=== PATIENT | male | born 1950 | race Caucasian/White ===

== ENCOUNTER 2017-12-20 11:20 | Outpatient (CLI) ==
--- NOTE | 2017-12-20 11:59 | DI ---
Exam: Three x-rays of the lumbar spine. Comparison: None available. Reason for exam: Chronic back pain. FINDINGS: Age indeterminate compression deformities are seen in the L3 and T10 vertebral bodies. Th ere is a normal appearing lumbar lordotic curve. Multilevel degenerative disease is seen with interv ertebral body disc space height loss and osteophyte formation with facet hypertrophy. Atherosclerotic disease is seen within the aorta and distal arterial vasculature. No obvious listhesis Impression: 1. Age indeterminate compression deformities are seen in the T10 and L3 vertebral bodies. No obvious listhesis. If clinical concern exists for radiculopathy or myelopathy, MRI may be performed for fur ther characterization. 2. Moderate degenerative disease in the lumbosacral spine.
--- NOTE | 2017-12-20 12:00 | DI ---
EXAM: Two views of the right hip. History: Right hip pain. Findings: No acute fracture or dislocation. Mild narrowing of the right hip joint with small osteop hytes. Atherosclerotic vascular calcifications. Mild osteopenia. Nonspecific pelvic calcifications are probably phleboliths. Impression: 1. No acute osseous abnormality. 2. Mild arthritis of the right hip joint. 3. Atherosclerotic vascular disease. 4. Mild osteopenia
== END 2017-12-20 11:21 | disposition home or self-care (01) ==
LOC: RAD 11:20
PROVIDERS: ATTEND Family Medicine
DX: M54.9 Dorsalgia, unspecified (principal); G89.29 Other chronic pain; M25.551 Pain in right hip; M79.604 Pain in right leg

== ENCOUNTER → 2018-01-09 | Outpatient (RCR) | payer OTHER ==
--- NOTE | 2017-12-27 11:07 | RS.OPPTEV2 ---
Date of Note: 12/26/17 Visit #: 1 Date of Evaluation: 12/26/17 Payer Source: MEDICARE Surgery Performed?: No Treatment Diagnosis: back pain History of Condition/Mechanism of Injury:: Reports pain began approx 6 months ago. Prior Level of Function.....Patient was independent with: ADL's, Self Care, Work /Vocation, Caregiving, Ambulation/Mobility, Community Integration/Access Functional Limitations: Sleep, Standing, Squatting, Ambulation, Community Access /Integration Current Subjective/complaints:: pt reports pain in R SI joint area radiating into R thigh. pt reports he feels like he has one leg longer than the other since this pain began. He states the pain is waking him up approx every 2 hours at night. Treatment Side (optional): Right *Precautions: n/a Medical History Medical History: Hypertension Surgical History: Other (de quervain's release) Smoking Status: Current some day smoker Diagnostic Testing/Imaging:: lumbar spine, hip xray: osteoarthritis R hip, moderate degenerative changes lumbar spine. Hx Home Medications: lopressor, zestril, hydroclorot, norvasc, calcium/magnesium , vit D3, I cap Patient's Goals: decrease pain Pain Assessment - Pain Description Pain Location: R SI joint area Pain Description: Tightness, Sharp, Aching Current Pain Intensity: 2/10 at rest Functional Outcome Measure Oswestry LBP: 18 (36%) - G Codes & Severity Modifier G Codes & Modifier: mobility current CJ. mobility goal CI Source of G Code score: oswestry low back pain scale Observation - Observation Inspection: RLE longer than LLE Posture: Forward Head, Rounded Shoulders, Decreased Lumbar Lordosis Gait - Gait Pattern General Gait Pattern Observation: Antalgic Gait Gait Comments: pt with antalgic gait General Range of Motion: ROM BUE WFL's. BLE WFL's Muscle Strength: BUE 5/5. RLE hip flex 4-/5, knee flex/ext 4+/5, ankle DF/PF 5/ 5. LLE hip flex 3+/5, knee flex/ext 4+/5, ankle DF/PF 5/5 - ROM Lumbar Flexion: Hand reach to patellae Sidebending to Left: Reach to Lateral Joint Line Sidebending to Right: Reach to Lateral Joint Line Lumbar Spine ROM Limitations: Soft Tissue Tightness, Muscle Weakness, Pain Comments: pt reports unable to tie R shoe due to pain and stiffness. Pain increases with lumbar flex and L lat flex somewhat decreased with lumbar ext. - Strength Trunk Extension: 4 Good Trunk Flexion: 4- Good- Trunk Lateral Flexion: 4- Good- - Special Tests Seated Dural Stretch Test: Positive Left, Positive Right Palpation Palpation Findings: Tenderness, Muscle Guarding Comments:: muscle guarding and trigger point noted over R SI joint Sensation - Sensation Right Upper Extremity: Intact/Normal Left Upper Extremity: Intact/Normal Right Lower Extremity: Impaired Left Lower Extremity: Intact/Normal Comments: pt reports radiating pain into R thigh to knee. Balance - Sitting Balance Static Sitting Balance: Normal Dynamic Sitting Balance: Normal - Standing Balance Static Standing Balance: Normal Dynamic Standing Balance: Normal - Heat/Cryotherapy Treatment: Cryotherapy Comments:: lumbosacral area Interventions - Exercise/Activities/Manual Therapy Exercises/Activities: pt instructed in prone lying, progressing to prone on elbows, hamstring and piriformis stretch, resisted hip flex, hip add isometric Manual Therapy: n/a HOME EXERCISE PROGRAM: pt given written HEP including prone lying progressing toward prone on elbows, hamstring stretches, piriformis, resisted hip flex, isometric hip add - Charges Timed Code Treatment Minutes: 52 Total Treatment Time: 60 Procedures billed for this date of service:: eval low, cold pack EVALUATION COMPLEXITY LEVEL EVALUATION COMPLEXITY LEVEL: HISTORY: Low (HTN, LBP), EXAM OF BODY SYSTEMS: Low (pain, muscle tightness), CLINICAL PRESENTATION: Medium, CLINICAL DECISION MAKING: Medium Assessment Assessment: pt presents with R SI joint pain with radiculopathy, muscle tightness, trigger points at R SI joint. R SI also rotated posteriorly. Patient Education: Education of diagnosis, Home Exercise Program, Education of Plan of Care Rehab Potential: Good Short Term Goals Goal #1: pt rate pain < 4/10 with activity Goal to be met by: 01/16/18 Goal #2: pt with decreased radicular symptoms in RLE Goal to be met by: 01/16/18 Snf Goals Goal #1: pt with no reports of pain or radicular symptoms with activity Goal to be met by: 02/06/18 Goal #2: Decreased hamstring tightness Goal to be met by: 02/06/18 Goal #3: pt independent with HEP Goal to be met by: 02/06/18 Goal #4: pt oswestry score <10 Goal to be met by: 02/06/18 Plan - Treatment to be Provided Procedures: Therapeutic Exercises, Therapeutic Activity, Manual Therapy, Massage , Patient Education Modalities: Electrical Stimulation, Ultrasound/Phonophoresis, Class IV Laser, Cryotherapy, Hot Packs - Treatment Plan Frequency: 2 X week Duration: 6 weeks ORDER # VISITS AND/OR THROUGH DATE: 02/06/18 - Treatment Code (1) Back pain Code(s): M54.9 - DORSALGIA, UNSPECIFIED Qualifiers: Back pain location: low back pain Chronicity: chronic Back pain laterality: right Sciatica presence: with sciatica Sciatica laterality: sciatica of right side Qualified Code(s): M54.41 - Lumbago with sciatica, right side; G89.29 - Other chronic pain; G89.29 - Other chronic pain (2) Muscle tightness Code(s): M62.89 - OTHER SPECIFIED DISORDERS OF MUSCLE (3) Sacroiliac dysfunction Code(s): M53.3 - SACROCOCCYGEAL DISORDERS, NOT ELSEWHERE CLASSIFIED
--- NOTE | 2017-12-28 16:30 | RS.OPPTDN ---
Subjective Date of Note: 12/28/17 Visit #: 2 Date of Evaluation: 12/26/17 Payer Source: MEDICARE Treatment Diagnosis: back pain Current Subjective/complaints:: Patient reports tightness in hamstrings with stretching. States he has pain at the right S-I and it is occasionally a sharp catch. Pateitn reports significant pain reduction following modalities and exercise. *Precautions: n/a Pain Assessment - Pain Description Pain Location: Right S-I, right posterior thigh and popliteal surface Pain Description: Sharp, Aching Current Pain Intensity: moderate prior to and 2/10 following treatment Other Comments regarding Pain:: Pain behind knee with positioning and with hamstring stretching. - Treatment Modality: US with ES (Comb.) Parameters/Method Applied: [id number] with US at 1.5w/cm2 and Estim between 9 and 12 p.v. to the right lower lumbar paraspinals and focus on the S-I joint area. Patient Position: Left Sidelying - Heat/Cryotherapy Treatment: Hot Pack ([id number] to the lowback and hips prior to USCOM and EX. Patient in supine. ) Interventions - Exercise/Activities/Manual Therapy Exercises/Activities: Assisted stretching of the bilateral hamstrings, piriformis, SKTC and short fig 4. MET with isometric right hip extension. Ended with additional stretching and isometric hip adduction. Total minutes of Exercise: 18mins Manual Therapy: n/a HOME EXERCISE PROGRAM: pt given written HEP including prone lying progressing toward prone on elbows, hamstring stretches, piriformis, resisted hip flex, isometric hip add - Objective Findings Observations,measurements,etc.: Patient with approx 1/2" leg length discrepancy , resolved with MET. - Charges Timed Code Treatment Minutes: 30mins Total Treatment Time: 45mins Procedures billed for this date of service:: HP, USCOM, EX Assessment: Patient with tightness in hips and hamstrings. He reported a good response to treatment and is motivated to work on HEP. Patient Education: Education of diagnosis, Body/Joint mechanics, Home Exercise Program, Home Safety, Activity Modification Comments: Patient education of dx, mechanics, safety when getting in/out of vechile, safe lifting/avoiding bending. Patient given copy of additons to HEP. 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
--- NOTE | 2018-01-02 13:26 | RS.OPPTDN ---
Subjective Date of Note: 01/01/18 Visit #: 3 Date of Evaluation: 12/26/17 Payer Source: MEDICARE Treatment Diagnosis: back pain Current Subjective/complaints:: Patient reports last treatment helped reduce pain. States he is working on HEP as instructed. *Precautions: n/a Pain Assessment - Pain Description Pain Location: Right S-I area Current Pain Intensity: mild to mod prior to and 2-3/10 following treatment - Treatment Modality: US with ES (Comb.) Parameters/Method Applied: [id number] with US at 1.5w/cm2 and Estim 9-11p.v. to the right S-I joint region. Patient Position: Left Sidelying - Heat/Cryotherapy Treatment: Hot Pack ([id number] to the LB and hips prior to USCOM. ) Interventions - Exercise/Activities/Manual Therapy Exercises/Activities: Assisted stretching of the bilateral hamstrings, piriformis, SKTC and short fig 4. MET with isometric right hip extension. Sitting stretching into figure 4 and piriformis stretches. Ended with bridging 3 reps. Total minutes of Exercise: 15mins Manual Therapy: n/a HOME EXERCISE PROGRAM: pt given written HEP including prone lying progressing toward prone on elbows, hamstring stretches, piriformis, resisted hip flex, isometric hip add - Charges Timed Code Treatment Minutes: 27mins Total Treatment Time: 50mins Procedures billed for this date of service:: HP, USCOM, EX Assessment: Patient responded well to first treatment with reports of pain reduction. Patient motivated to progress exercise. Patient Education: Body/Joint mechanics, Home Exercise Program Patient demonstrates compliance with HEP?: Yes Short Term Goals Goal #1: pt rate pain < 4/10 with activity Goal to be met by: 01/16/18 Progress towards Goal:: Progressing Goal #2: pt with decreased radicular symptoms in RLE Goal to be met by: 01/16/18 Senior Care Goals Goal #1: pt with no reports of pain or radicular symptoms with activity Goal to be met by: 02/06/18 Goal #2: Decreased hamstring tightness Goal to be met by: 02/06/18 Goal #3: pt independent with HEP Goal to be met by: 02/06/18 Progress towards goal: Progressing Goal #4: pt oswestry score <10 Goal to be met by: 03/28/18 Plan PLAN OF CARE EXPIRES ON:: 02/06/18 ORDER # VISITS AND/OR THROUGH DATE: 02/06/18 PLAN: Continue modalities and progress exercise to reduce pain and increase functional mobility and activity level.
--- NOTE | 2018-01-07 09:40 | RS.OPPTDN ---
Subjective Date of Note: 01/04/18 Visit #: 4 Date of Evaluation: 12/26/17 Payer Source: MEDICARE Treatment Diagnosis: back pain Current Subjective/complaints:: Patient reports continued improvement in pain. States he is able to do more light activities without aggravating pain. States pain at the right LS and S-I area is better, but right LE symptoms slightly increased. *Precautions: n/a Pain Assessment - Pain Description Pain Location: Right hip, LB, and thigh Pain Description: Aching Current Pain Intensity: mild to mod - Treatment Modality: US with ES (Comb.) Parameters/Method Applied: [id number] with US at 1.5w/cm2 and Estim at 10-11 p.v. to the right lower lumbar paraspinals and S-I joint area. Patient Position: Left Sidelying - Heat/Cryotherapy Treatment: Hot Pack ([id number] to the lowback and hips prior to USCOM and EX. Patient in supine. ) Interventions - Exercise/Activities/Manual Therapy Exercises/Activities: Assisted stretching of the bilateral hamstrings, piriformis, SKTC and short fig 4. MET with isometric right hip extension. Isometric hip add, 10reps. Isometric hip flexion, alt 4s/5reps each side. Bridging 3 reps. Total minutes of Exercise: 15mins Manual Therapy: n/a HOME EXERCISE PROGRAM: Hamstring stretches, piriformis, resisted hip flex, isometric hip add, isometric hip flexion, bridging. Stopped prone lying., - Charges Timed Code Treatment Minutes: 27mins Total Treatment Time: 50mins Procedures billed for this date of service:: HP, USCOM, EX Assessment: Patient reports good response to treatment and exercise. Will progress MET and pelvic stability exercises. Patient Education: Body/Joint mechanics, Home Exercise Program Patient demonstrates compliance with HEP?: Yes Short Term Goals Goal #1: pt rate pain < 4/10 with activity Goal to be met by: 01/16/18 Progress towards Goal:: Partially Met Goal #2: pt with decreased radicular symptoms in RLE Goal to be met by: 01/16/18 [facility] Goals Goal #1: pt with no reports of pain or radicular symptoms with activity Goal to be met by: 02/06/18 Progress towards goal: Progressing Goal #2: Decreased hamstring tightness Goal to be met by: 02/06/18 Progress towards goal: Progressing Goal #3: pt independent with HEP Goal to be met by: 02/06/18 Progress towards goal: Partially Met Goal #4: pt oswestry score <10 Goal to be met by: 02/06/18 Plan PLAN OF CARE EXPIRES ON:: 02/06/18 ORDER # VISITS AND/OR THROUGH DATE: 02/06/18 PLAN: Progress with MET and pelvic stability exercises.
--- NOTE | 2018-01-09 16:35 | RS.OPPTDN ---
Subjective Date of Note: 01/09/18 Visit #: 5 Date of Evaluation: 12/26/17 Payer Source: MEDICARE Treatment Diagnosis: back pain Current Subjective/complaints:: Patient reports doing better today. Reports being able to be mobile during the day but is guarded and cautious with movement to avoid increased pain. States he continues to have difficutly putting on his right shoe in the morning. *Precautions: n/a Pain Assessment - Pain Description Pain Location: right lowback and S-I joint Current Pain Intensity: mild Worst Pain Intensity: moderate in mornings - Treatment Modality: US with ES (Comb.) Parameters/Method Applied: [id number] to the right lower lumbar paraspinals and S- I joint area with US at 1.5w/cm2 and Estim to 10-11p.v. Patient Position: Left Sidelying - Heat/Cryotherapy Treatment: Hot Pack ([id number] to the lowback and hips prior to USCOM and EX. Patient in supine. ) Interventions - Exercise/Activities/Manual Therapy Exercises/Activities: Focus on assisted stretching today, bilateral hamstrings , piriformis, SKTC and short fig 4. MET with isometric right hip extension, multiple reps. Isometric hip add, 10reps. Started isometric hip flexion, but patient had muscle spasm in the left. Sitting mod figure 4 hip stretching. Total minutes of Exercise: 15mins Manual Therapy: n/a HOME EXERCISE PROGRAM: Hamstring stretches, piriformis, resisted hip flex, isometric hip add, isometric hip flexion, bridging. Stopped prone lying., - Charges Timed Code Treatment Minutes: 25mins Total Treatment Time: 45mins Procedures billed for this date of service:: HP, USCOM, EX Assessment: Patient progressing with ability to be mobile during the day if he is cautious with movement. He continues to be tight in the mornings and have difficulty with basic ADL's. Patient Education: Body/Joint mechanics, Home Exercise Program, Activity Modification Patient demonstrates compliance with HEP?: Yes Short Term Goals Goal #1: pt rate pain < 4/10 with activity Goal to be met by: 01/16/18 Progress towards Goal:: Partially Met Goal #2: pt with decreased radicular symptoms in RLE Goal to be met by: 01/16/18 Longterm Goals Goal #1: pt with no reports of pain or radicular symptoms with activity Goal to be met by: 02/06/18 Progress towards goal: Progressing Goal #2: Decreased hamstring tightness Goal to be met by: 02/06/18 Progress towards goal: Partially Met Goal #3: pt independent with HEP Goal to be met by: 02/06/18 Progress towards goal: Partially Met Goal #4: pt oswestry score <10 Goal to be met by: 02/06/18 Plan PLAN OF CARE EXPIRES ON:: 02/06/18 ORDER # VISITS AND/OR THROUGH DATE: 02/06/18 PLAN: Continue modalities and assisted stretching to reduce pain and increase patients functional activity level.
== END ==
PROVIDERS: ATTEND Family Medicine
DX: M54.9 Dorsalgia, unspecified (principal)

== ENCOUNTER 2018-01-31 15:00 | Outpatient (RCR) ==
--- NOTE | 2018-01-11 16:37 | RS.OPPTDN ---
Subjective Date of Note: 01/11/18 Visit #: 6 Date of Evaluation: 12/26/17 Payer Source: MEDICARE Treatment Diagnosis: back pain Current Subjective/complaints:: Patient reports pain has been much better today. 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 Patient states he would like to have his pain down to a tolerable level so he can perform more of his normal work duties. *Precautions: n/a Pain Assessment - Pain Description Pain Location: Right lowback and S-I region. Current Pain Intensity: mild Other Comments regarding Pain:: Patient reports mild pain but states he is very limited in his activities at work as he is avoiding a flair-up of symptoms. - Treatment Modality: US with ES (Comb.) Parameters/Method Applied: [id number] with US at 1.5w/cm2 and Estim to 10p.v. to the right lower lumbar paraspinals and the right S-I joint prior to EX. Patient Position: Left Sidelying - Heat/Cryotherapy Treatment: Hot Pack ([id number] to the lowback and hips prior to USCOM and EX. Patient in supine. ) Interventions - Exercise/Activities/Manual Therapy Exercises/Activities: Continue to focus on stretching of bilateral hamstrings, piriformis, SKTC and short fig 4. MET with isometric right hip extension, multiple reps. Isometric hip add, 10reps. Isometric hip flexion 4s/5reps each. Isometric LTR in neutral with pillow. Total minutes of Exercise: 20mins Manual Therapy: n/a HOME EXERCISE PROGRAM: Hamstring stretches, piriformis, resisted hip flex, isometric hip add, isometric hip flexion, bridging. Stopped prone lying., - Charges Timed Code Treatment Minutes: 30mins Total Treatment Time: 50mins Procedures billed for this date of service:: HP, USCOM, EX Assessment: Patient reporting good progress with pain reduction and improvement in mobility with basic activities at work. We will need to increase flexibility and trunk strengthening to improve patients functional activity at home and work. Patient Education: Body/Joint mechanics, Home Exercise Program, Activity Modification Patient demonstrates compliance with HEP?: Yes Short Term Goals Goal #1: pt rate pain < 4/10 with activity Goal to be met by: 01/16/18 Progress towards Goal:: Partially Met Goal #2: pt with decreased radicular symptoms in RLE Goal to be met by: 01/16/18 Progress towards Goal:: Progressing Intermediate Goals Goal #1: pt with no reports of pain or radicular symptoms with activity Goal to be met by: 02/06/18 Progress towards goal: Progressing Goal #2: Decreased hamstring tightness Goal to be met by: 02/06/18 Progress towards goal: Partially Met Goal #3: pt independent with HEP Goal to be met by: 02/06/18 Progress towards goal: Partially Met Goal #4: pt oswestry score <10 Goal to be met by: 02/06/18 Plan PLAN OF CARE EXPIRES ON:: 02/06/18 ORDER # VISITS AND/OR THROUGH DATE: 02/06/18 PLAN: Continue modalities and progress exercise to reduce pain and increase patients functional activity level at home and work.
--- NOTE | 2018-01-15 16:31 | RS.OPPTDN ---
Subjective Date of Note: 01/15/18 Visit #: 7 Date of Evaluation: 12/26/17 Payer Source: MEDICARE Treatment Diagnosis: back pain Current Subjective/complaints:: Patient reports he had a bad day over the weekend. Reports pain from lateral right hip to knee with cross-over piriformis stretch. States he still feels like he is better overall and having more good days than bad. States he is consistently working on HEP. *Precautions: n/a Pain Assessment - Pain Description Pain Location: Right S-I, lateral hip and thigh Pain Description: Radiating, Aching Current Pain Intensity: mild in standing Worst Pain Intensity: mod to high when crapping - Treatment Modality: US with ES (Comb.) Parameters/Method Applied: [id number] with US at 1.5w/cm2 and Estim at 10-11p.v. to the right lower lumbar paraspinals and S-I joint area. Patient Position: Left Sidelying - Heat/Cryotherapy Treatment: Hot Pack ([id number] to the lowback and hips prior to USCOM and EX. Patient in supine. ) Interventions - Exercise/Activities/Manual Therapy Exercises/Activities: Continue to focus on stretching of bilateral hamstrings, piriformis, SKTC and short fig 4. MET with isometric right hip extension, multiple reps. Isometric hip add, 10reps. Isometric hip flexion on left. Stopped due to flair-up of right LE radicular symptoms, which resolved with change of positions. Total minutes of Exercise: 14mins Manual Therapy: n/a HOME EXERCISE PROGRAM: Hamstring stretches, piriformis, resisted hip flex, isometric hip add, isometric hip flexion, bridging. Stopped prone lying., - Charges Timed Code Treatment Minutes: 26mins Total Treatment Time: 46mins Procedures billed for this date of service:: HP, USCOM, EX Assessment: Patient with a flair-up of symptoms the last 2 days. He still reports improvement overall and is motivated to work on exercises. 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
--- NOTE | 2018-01-18 12:06 | RS.OPPTDN ---
Subjective Date of Note: 01/17/18 Visit #: 8 Date of Evaluation: 12/26/17 Payer Source: MEDICARE Treatment Diagnosis: back pain Current Subjective/complaints:: Patient reports he continues to have flair-ups of pain with increased activities at work. Reports left leg is shorter during the day, but resolves with MET. Reports pain reduced to min after treatment. *Precautions: n/a Pain Assessment - Pain Description Pain Location: Right S-I and upper thigh Pain Description: Aching Current Pain Intensity: mod+ prior to and min following treatment - Treatment Modality: US with ES (Comb.) Parameters/Method Applied: [id number] with US at 1.5w/cm2 and Estim 10-11p.v. to the right lowback and S-I joint region. Patient Position: Left Sidelying - Heat/Cryotherapy Treatment: Hot Pack ([id number] to the lowback and hips prior to USCOM and EX. Patient in supine. ) Interventions - Exercise/Activities/Manual Therapy Exercises/Activities: Continue to focus on stretching of bilateral hamstrings and SKTC. MET with isometric right hip extension, multiple reps. Isometric hip add, 10reps. Isometric hip flexion on left. Instructed patient in self MET of isometric hip ext on right with isometric hip flexion on left in supine. Then in standing, isometric hip flexion at wall with glut set on the left. Total minutes of Exercise: 15mins Manual Therapy: n/a HOME EXERCISE PROGRAM: Hamstring stretches, piriformis, resisted hip flex, isometric hip add, isometric hip flexion, bridging. Stopped prone lying., - Objective Findings Observations,measurements,etc.: Patient demos approx 1/2" leg length discrepancy with right longer than left. Resolved with MET but goes back to approx 1/4" with leg lifts. - Charges Timed Code Treatment Minutes: 27mins Total Treatment Time: 50mins Procedures billed for this date of service:: HP, USCOM, EX Assessment: Patient responds to modalities and MET with reports of pain reduction. He continues to have significant muscle imbalance causing leg length discrepancy. He will need to continue stretching and MET. Patient Education: Body/Joint mechanics, Home Exercise Program, Activity Modification Comments: Reveiwed education of safe lifting and body mechanics at work. Patient demonstrates compliance with HEP?: Yes Short Term Goals Goal #1: pt rate pain < 4/10 with activity Goal to be met by: 01/16/18 Progress towards Goal:: Partially Met Goal #2: pt with decreased radicular symptoms in RLE Goal to be met by: 01/16/18 Progress towards Goal:: Regressing Wood Turner Goals Goal #1: pt with no reports of pain or radicular symptoms with activity Goal to be met by: 02/06/18 Progress towards goal: Progressing Goal #2: Decreased hamstring tightness Goal to be met by: 02/06/18 Progress towards goal: Partially Met Goal #3: pt independent with HEP Goal to be met by: 02/06/18 Progress towards goal: Partially Met Goal #4: pt oswestry score <10 Goal to be met by: 02/06/18 Plan PLAN OF CARE EXPIRES ON:: 02/06/18 ORDER # VISITS AND/OR THROUGH DATE: 02/06/18 PLAN: Continue progression of exercise and MET to promote alignment and reduce pain.
--- NOTE | 2018-01-21 14:29 | RS.OPPTDN ---
Subjective Date of Note: 01/21/18 Visit #: 9 Date of Evaluation: 12/26/17 Payer Source: MEDICARE Treatment Diagnosis: back pain Current Subjective/complaints:: Patient reports having a few good days. Reports he is working on MET as instructed. Reports pain reduction with treatment today including manual therapy with stretching exercise. *Precautions: n/a Pain Assessment - Pain Description Pain Location: Right S-I and upper lateral thigh Pain Description: Aching Current Pain Intensity: mild - Treatment Modality: US with ES (Comb.) Parameters/Method Applied: [id number] to the lower right lumbar paraspinals and right S-I joint prior to EX and MT. Patient Position: Left Sidelying - Heat/Cryotherapy Treatment: Hot Pack ([id number] to the lowback and hips prior to USCOM. Patient in supine. ) Interventions - Exercise/Activities/Manual Therapy Exercises/Activities: Continue to focus on stretching of bilateral hamstrings and SKTC. Isometric hip add, 10reps. Isometric hip flexion on left, multiple reps. Total minutes of Exercise: 5mins Manual Therapy: Trigger point release to the right S-I joint area. MET for pelvic alignment with focus on isometric extension of the right hip. Total minutes of Manual Therapy: 10mins HOME EXERCISE PROGRAM: Hamstring stretches, piriformis, resisted hip flex, isometric hip add, isometric hip flexion, bridging. Stopped prone lying., - Objective Findings Observations,measurements,etc.: Continues to demo leg length discrepancy with left shorter than right by approx 1/4 to 1/2". Resolved with skilled manual MET/ pelvic realignment. - Charges Timed Code Treatment Minutes: 27mins Total Treatment Time: 50mins Procedures billed for this date of service:: HP, USCOM, MT Assessment: Patient benefitting from skilled manual therapy including MET for pelvic alignment. Patient Education: Body/Joint mechanics, Home Exercise Program Patient demonstrates compliance with HEP?: Yes Short Term Goals Goal #1: pt rate pain < 4/10 with activity Goal to be met by: 01/16/18 Progress towards Goal:: Partially Met Goal #2: pt with decreased radicular symptoms in RLE Goal to be met by: 01/16/18 Progress towards Goal:: Progressing Mcfp Goals Goal #1: pt with no reports of pain or radicular symptoms with activity Goal to be met by: 02/06/18 Progress towards goal: Progressing Goal #2: Decreased hamstring tightness Goal to be met by: 02/06/18 Progress towards goal: Partially Met Goal #3: pt independent with HEP Goal to be met by: 02/06/18 Progress towards goal: Partially Met Goal #4: pt oswestry score <10 Goal to be met by: 02/06/18 Plan PLAN OF CARE EXPIRES ON:: 02/06/18 ORDER # VISITS AND/OR THROUGH DATE: 02/06/18 PLAN: Continue modalities and progress pelvic alignment exercises.
--- NOTE | 2018-01-25 15:50 | RS.OPPTDN ---
Subjective Date of Note: 01/24/18 Visit #: 10 Date of Evaluation: 12/26/17 Payer Source: MEDICARE Treatment Diagnosis: back pain Current Subjective/complaints:: Patient reports he has seen a lot of progress with therapy. States he has been able to perform light activities at home and work, but he is "very careful" with all movement. He feels he would benefit from continued treatment to continue to improve his abililty to perform activities as he continues to work. *Precautions: n/a Pain Assessment - Pain Description Pain Location: right lowback, S-I, and right hip Pain Description: Dull, Aching Current Pain Intensity: mild today Other Comments regarding Pain:: Reports he has had 3 good days, but is very careful with all activities. - Treatment Modality: US with ES (Comb.) Parameters/Method Applied: [id number] with US at 1.5w/cm2 and Estim to 11-12p.v. to the right lumbar paraspinals and S-I joint area. Patient Position: Left Sidelying - Heat/Cryotherapy Treatment: Hot Pack ([id number] to the lowback and hips prior to USCOM. Patient in supine. ) Interventions - Exercise/Activities/Manual Therapy Exercises/Activities: Focus on stretching of bilateral hamstrings and SKTC. Isometric hip add, 10reps. Isometric hip flexion on left, multiple reps, for MET and pelvic alignment. Bridge. Total minutes of Exercise: 13mins Manual Therapy: MET for pelvic alignment with focus on isometric extension of the right hip. Total minutes of Manual Therapy: 2mins HOME EXERCISE PROGRAM: Hamstring stretches, piriformis, resisted hip flex, isometric hip add, isometric hip flexion, bridging. Stopped prone lying., - Objective Findings Observations,measurements,etc.: Discussion of progress and assessment of Oswestry improved to 11 or 22% (was 18 or 36% on Eval) This puts his function at the high end of the current impairment category. - Charges Timed Code Treatment Minutes: 27mins Total Treatment Time: 50mins Procedures billed for this date of service:: HP, USCOM, EX Assessment: Patient has progressed well and benefitted from treatment. He has made significant improvement on FOM and continue treatment is indicated to further progress patients functional activity level. 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 Goal #1: pt with no reports of pain or radicular symptoms with activity Goal to be met by: 02/06/18 Progress towards goal: Progressing Goal #2: Decreased hamstring tightness Goal to be met by: 02/06/18 Progress towards goal: Met Goal #3: pt independent with HEP Goal to be met by: 02/06/18 Progress towards goal: Met Goal #4: pt oswestry score <10 Goal to be met by: 02/06/18 Progress towards goal: Partially Met (Score of 11 today (01/24/18)) Plan PLAN OF CARE EXPIRES ON:: 02/06/18 ORDER # VISITS AND/OR THROUGH DATE: 02/06/18 PLAN: Continue with POC to further progress patients functional activity level.
--- NOTE | 2018-01-28 12:13 | RS.OPPTDN ---
Subjective Date of Note: 01/28/18 Visit #: 11 Date of Evaluation: 12/26/17 Payer Source: MEDICARE Treatment Diagnosis: back pain Current Subjective/complaints:: Patient reports he did well most of the weekend with mild to mod discomfort only. States he has an episode yesterday afternoon after working at home, but it resolved with stretching. Patient reports he is working on self pelvic alignment at wall at work with isometric hip flexion left , which seems to be helping keep his pain level down. *Precautions: n/a Pain Assessment - Pain Description Pain Location: Right S-I joint area Current Pain Intensity: mild following treatment and exercise - Treatment Modality: US with ES (Comb.) Parameters/Method Applied: [id number] US at 1.5w/cm2 and Estim at 9-11p.v. to the right lower lumbar paraspinals and S-I joint area. Patient Position: Left Sidelying - Heat/Cryotherapy Treatment: Hot Pack ([id number] to lowback and hips prior to USCOM and MT. ) Interventions - Exercise/Activities/Manual Therapy Exercises/Activities: Focus on stretching and MET. Assisted stretching of the bilateral hamstrings and SKTC. Isometric hip flexion on left, multiple reps, and isometric hip ext on the right for MET and pelvic alignment. Bridge. Total minutes of Exercise: 12mins Manual Therapy: MET for pelvic alignment with focus on isometric extension of the right hip. HOME EXERCISE PROGRAM: Hamstring stretches, piriformis, resisted hip flex, isometric hip add, isometric hip flexion, bridging. Stopped prone lying., - Objective Findings Observations,measurements,etc.: Patients hamstring length improveing. - Charges Timed Code Treatment Minutes: 24mins Total Treatment Time: 45mins Procedures billed for this date of service:: HP, USCOM, EX Assessment: Patient reporting fewwer and shorter flair-ups. He is performing more functional activities at home and work. Patient Education: Home Exercise Program Patient demonstrates compliance with HEP?: Yes Short Term Goals Goal #1: pt rate pain < 4/10 with activity Goal to be met by: 01/16/18 Progress towards Goal:: Met Goal #2: pt with decreased radicular symptoms in RLE Goal to be met by: 01/16/18 Progress towards Goal:: Progressing Residential Goals Goal #1: pt with no reports of pain or radicular symptoms with activity Goal to be met by: 02/06/18 Progress towards goal: Progressing Goal #2: Decreased hamstring tightness Goal to be met by: 02/06/18 Progress towards goal: Met Goal #3: pt independent with HEP Goal to be met by: 02/06/18 Progress towards goal: Met Goal #4: pt oswestry score <10 Goal to be met by: 02/06/18 Progress towards goal: Partially Met (Score of 11 today (01/24/18)) Plan PLAN OF CARE EXPIRES ON:: 02/06/18 ORDER # VISITS AND/OR THROUGH DATE: 02/06/18 PLAN: Progress pelvic alignment exercise and MET to reduce pain and increase functional activity level at home and work.
--- NOTE | 2018-01-28 15:08 | RS.PTSUM ---
Progress Note/Summary Date of Note: 01/24/18 Date of Evaluation: 12/26/17 Number of Visits: 10 Reporting Period for this Progress Note: 12/26/17-01/24/18 Current Complaints/Gains: pt states he has seen progress with PT. pt states he has been able to perform light activities at [employer] and at work. States he is "very careful" with all movement. Objective Measurements/Presentation: pt with improved hamstring length. pt continues with pain in R low back/ SI joint area. pt is independent with initial HEP. Oswestry scale 11. pt is progressing with decreased pain, decreased radicular symptoms. G Codes: mobility current CJ. 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 Feel pt would continue to benefit from skilled PT for 2 more visits to reinforce HEP as well as advance HEP as tolerated. Summary: Patient has made progress towards goals., Patient demonstrates potential to gain increased function with therapy - Plan Plan: Continue Plan of Care Frequency: 2 X week Duration: 1 week PLAN OF CARE EXPIRES ON:: 02/06/18 ORDER # VISITS AND/OR THROUGH DATE: 02/06/18
--- NOTE | 2018-01-31 16:37 | RS.OPPTDN ---
Subjective Date of Note: 01/31/18 Visit #: 12 Date of Evaluation: 12/26/17 Payer Source: MEDICARE Treatment Diagnosis: back pain Current Subjective/complaints:: Patient reports he is pleased with the progress he has made with therapy. States he is able to perform light activities at home and work if he is cautious with movement. He reports he will continue with HEP and MET which has helped him. He is scheduled for an Evaluation with Dr. Gates and the plan is to schedule injections. *Precautions: n/a Pain Assessment - Pain Description Pain Location: right S-I Current Pain Intensity: mild Other Comments regarding Pain:: Reports only occasional discomfort at the right anterior groin. - Treatment Modality: US with ES (Comb.) Parameters/Method Applied: [id number] with US at 1.5w/cm2 and Estim 11-12p.v. to the right lower lumbar paraspinals and right S-I joint. Patient Position: Left Sidelying - Heat/Cryotherapy Treatment: Hot Pack ([id number] to the LB and hips prior to USCOM and EX. Patient in supine. ) Interventions - Exercise/Activities/Manual Therapy Exercises/Activities: Focus on stretching and MET. Assisted stretching of the bilateral hamstrings and SKTC. Isometric hip flexion on left, multiple reps, and isometric hip ext on the right for MET and pelvic alignment. Pelvic tilts and bridge. Reveiwed and finalized all patient education and HEP. Patient given additional copy of exercise. Total minutes of Exercise: 15mins Manual Therapy: MET for pelvic alignment with focus on isometric extension of the right hip. Total minutes of Manual Therapy: 2mins HOME EXERCISE PROGRAM: Hamstring stretches, piriformis, resisted hip flex, isometric hip add, isometric hip flexion, bridging. Stopped prone lying., - Objective Findings Observations,measurements,etc.: Oswestry improved to 10 or 20% deficit. He continues to be in a Mobility impairment category of CJ, but is now at the highest end of the category. - Charges Timed Code Treatment Minutes: 29mins Total Treatment Time: 50mins Procedures billed for this date of service:: HP, USCOM, EX Assessment: Patient has progressed well and benefitted from therapy. He has met 3 of 6 treatment goals. He has completed initial POC and will continue HEP as he goes for further physician Evaluation and injections. 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
== END 2018-02-09 ==
PROVIDERS: ATTEND Family Medicine
DX: M54.9 Dorsalgia, unspecified (principal)